=== PATIENT | male | born 1950 ===

== ENCOUNTER 2025-05-25 09:34 | Inpatient (IN) | payer MEDICARE ==
[~2025-05-25] VITALS: Ht 188 cm; Wt 76.4 kg
[2025-05-25] VITALS (15 sets, daily range): BP systolic 114–139; BP diastolic 59–77
[2025-05-25 10:02] LABS: BASOPHILS ABSOLUTE AUTO 0.03 K/mm3 (0.00-0.23); BASOPHILS PERCENT AUTO 0 % (0-2); EOSINOPHILS ABSOLUTE AUTO 0.02 K/mm3 (0.00-0.68); EOSINOPHILS PERCENT AUTO 0 % (0-6); Hematocrit 47.1 % (37.0-53.0); Hemoglobin 16.7 g/dL (13.5-17.5); IMMATURE GRAN ABSOLUTE AUTO 0.04 K/mm3 (0.00-0.10); IMMATURE GRAN PERCENT AUTO 0 % (0-1); LYMPHOCYTES ABSOLUTE AUTO 0.70 K/mm3 (0.84-5.20); LYMPHOCYTES PERCENT AUTO 6 % (21-46); MONOCYTES ABSOLUTE AUTO 0.45 K/mm3 (0.16-1.47); MONOCYTES PERCENT AUTO 4 % (4-13); Mean Corpuscular HGB Conc 35.5 g/dL (31.5-36.5); Mean Corpuscular Volume 94 fL (80-100); NEUTROPHILS ABSOLUTE AUTO 10.04 K/mm3 (1.96-9.15); NEUTROPHILS PERCENT AUTO 89 % (41-73); NRBC ABSOLUTE 0.00 K/mm3 (0.00-0.02); NRBC Auto 0.0 /100 WBC (0.0-0.2); Platelet Count 210 K/mm3 (150-400); RDW Coefficient Variation 13.0 % (11.7-14.2); RDW Standard Deviation 44.7 fL (35.1-46.3)
[2025-05-25 10:20] LABS: Alanine Aminotransfer (ALT/SGP 29.0 U/L (12-78); Albumin, Blood 3.5 g/dL (3.4-5.0); Albumin/Globulin Ratio 1.1 (0.8-1.8); Anion Gap 7.0 mmol/L (3-11); Aspartate Aminotrans (AST/SGOT 142.0 U/L (12-37); Bilirubin, Total 0.8 mg/dL (0.1-1.0); Blood Urea Nitrogen 11.0 mg/dL (8-24); CO2, Blood 26.0 mmol/L (21-32); Calcium, Blood 9.5 mg/dL (8.5-10.1); Chloride, Blood 107.0 mmol/L (98-108); Creatinine, Blood 0.85 mg/dL (0.60-1.20); Globulin, Blood 3.3 g/dL (2.2-4.0); Glucose, Blood 139.0 mg/dL (70-99); Potassium, Blood 4.6 mmol/L (3.5-5.5); Sodium, Blood 135.0 mmol/L (136-145); Total Protein, Blood 6.8 g/dL (6.4-8.2)
[2025-05-25] MEDS ORDERED: Ondansetron HCl 2 MG / ML 2ML Vial IV ONE (10:50)
[2025-05-25] MEDS ORDERED: Morphine Sulfate 4 MG/1 ML Injection IV ONE (11:00)
[2025-05-25] MEDS ORDERED: Metoclopramide HCl 5MG / ML 2ML Vial IV ONE (11:10)
[2025-05-25 11:28] LABS: Prothrombin Time Results 11.5 Sec (9.7-11.5)
[2025-05-25] MEDS ORDERED: Heparin Sodium,Porcine/0.5 NS 500 ML IV SCH (11:50)
[2025-05-25] MEDS ORDERED: Heparin Sodium 5000 Units/ML 1ML MDV IV ONE (11:50)
[2025-05-25] MEDS ORDERED: Nitroglycerin 2 MG/20 ML BTL ONE (12:22)
[2025-05-25] MEDS ORDERED: NS 1,000 ML IV ONE ×2 (12:22→12:23)
[2025-05-25] MEDS ORDERED: NS 250 ML IV ONE (12:22)
[2025-05-25] MEDS ORDERED: NiCARdipine HCL 1,000 MCG/5 ML SYR ONE (12:22)
[2025-05-25] MEDS ORDERED: FentaNYL Citrate 50 MCG/ML 2 ML Injection ONE (12:23)
[2025-05-25] MEDS ORDERED: Midazolam HCl 1MG / ML 2ML Vial ONE (12:23)
[2025-05-25] MEDS ORDERED: NS 1,000 ML IV SCH (13:40)
--- NOTE | 2025-05-25 14:00 | NUR ---
ADMIT PT ARRIVED TO ICU 11 VIA BED S/P STORAGE MANAGER AT 1345. PT IS AWAKE, ALERT, AND ORIENTED. PT ANSWERS QUESTIONS APPROPRIATELY. PT DENIES CHEST PAIN, NAUSEA, OR SOB AT THIS TIME. PT COMPLAINS OF MILD CHEST DISCOMFORT. NITRO GTT INFUSING AT 70 MCG/MIN UPON ARRIVAL AND NS GTT TO GRAVITY. TR BAND IN PLACE TO RIGHT RADIAL SITE WITH ARM BOARD IN PLACE. SITE SOFT, NON TENDER, NO OOZING OR HEMATOMA NOTED AT THIS TIME. VITAL SIGNS STABLE. WILL CONTINUE TO MONITOR.
[2025-05-25 14:05] LABS: LDL/HDL RATIO 2.2
[2025-05-25 14:06] LABS: CHOL/HDL RATIO 3.4; Cholesterol 212 mg/dL (50-200); HDL Cholesterol 62 mg/dL (>39); Low Density Lipoprotein Chol 133 mg/dL (0-110); Triglycerides 83 mg/dL (30-160); Very Low Density Lipoprot Chol 16 mg/dL (6-32)
[2025-05-25] MEDS ORDERED: HYDROmorphone HCl/Pf 1MG SYR IV PRN (15:25)
[2025-05-25] MEDS ORDERED: Dose Adjust by Pharmacy XX STA (16:40)
--- NOTE | 2025-05-25 18:42 | NUR ---
TRANSFER TO [facility] PT LEFT THE ICU VIA [facility] AT 1825 FOR TRANSFER TO [facility] [place]. PT SPOUSE AT BEDSIDE DURING TRANSFER. ALL PT BELONGINGS SENT WITH PT. PT WITH NITRO AND HEPARIN GTT INFUSING. VSS. REPORT CALLED TO SARAY GOMEZ. ALL QUESTIONS ANSWERED.
== END 2025-05-25 18:25 | disposition short-term general hospital (02) | DRG 280 ==
LOC: ER 09:34 → PCU 12:34 → ICUE 12:34
PROVIDERS: Internal Medicine Cardiovascular Disease; Student in an Organized Health Care Education/Training Program; ADMIT Family Medicine
PROC: B2111ZZ Fluoroscopy of Multiple Coronary Arteries using Low Osmolar Contrast (ICD-10-PCS; principal; 2025-05-25)
PROC: 4A023N7 Measurement of Cardiac Sampling and Pressure, Left Heart, Percutaneous Approach (ICD-10-PCS; 2025-05-25)
DX: I21.4 Non-ST elevation (NSTEMI) myocardial infarction (principal); I50.21 Acute systolic (congestive) heart failure; K21.9 Gastro-esophageal reflux disease without esophagitis; I25.10 Atherosclerotic heart disease of native coronary artery without angina pectoris; I49.3 Ventricular premature depolarization; I27.21 Secondary pulmonary arterial hypertension; Z95.5 Presence of coronary angioplasty implant and graft; Z87.19 Personal history of other diseases of the digestive system; Z88.8 Allergy status to other drugs, medicaments and biological substances; Z85.828 Personal history of other malignant neoplasm of skin; Z87.891 Personal history of nicotine dependence
CPT/HCPCS: 71046; 76937; 80053; 80061; 84484; 85025; 85379; 85520; 85610; 85730; 93005; 93010; 93458; 93880; 96365; 96368; 96375; 99152; 99153; 99291-25; A9270; C1769; C1894; C8929; J1644; J2250; J2270; J2405; J2765; J3010; J7030; J7050; Q9957; Q9967

== ENCOUNTER 2025-06-19 16:10 | Inpatient (IN) | payer MEDICARE ==
[~2025-06-19] VITALS: Ht 182.9 cm; Wt 69.8 kg
[2025-06-19 16:42] LABS: BASOPHILS ABSOLUTE AUTO 0.06 K/mm3 (0.00-0.23); BASOPHILS PERCENT AUTO 0 % (0-2); EOSINOPHILS ABSOLUTE AUTO 0.11 K/mm3 (0.00-0.68); EOSINOPHILS PERCENT AUTO 1 % (0-6); Hematocrit 37.0 % (37.0-53.0); Hemoglobin 12.8 g/dL (13.5-17.5); IMMATURE GRAN ABSOLUTE AUTO 0.07 K/mm3 (0.00-0.10); IMMATURE GRAN PERCENT AUTO 0 % (0-1); LYMPHOCYTES ABSOLUTE AUTO 0.83 K/mm3 (0.84-5.20); LYMPHOCYTES PERCENT AUTO 5 % (21-46); MONOCYTES ABSOLUTE AUTO 0.90 K/mm3 (0.16-1.47); MONOCYTES PERCENT AUTO 6 % (4-13); Mean Corpuscular HGB Conc 34.6 g/dL (31.5-36.5); Mean Corpuscular Volume 92 fL (80-100); NEUTROPHILS ABSOLUTE AUTO 14.01 K/mm3 (1.96-9.15); NEUTROPHILS PERCENT AUTO 88 % (41-73); NRBC ABSOLUTE 0.00 K/mm3 (0.00-0.02); NRBC Auto 0.0 /100 WBC (0.0-0.2); Platelet Count 312 K/mm3 (150-400); RDW Coefficient Variation 13.2 % (11.7-14.2); RDW Standard Deviation 44.4 fL (35.1-46.3)
[2025-06-19] MEDS ORDERED: ACET500 PO (17:00)
[2025-06-19] MEDS ORDERED: Aspir 8181 MG PO (17:01)
[2025-06-19] MEDS ORDERED: CARV3.125 PO (17:01)
[2025-06-19] MEDS ORDERED: LOSA25 PO (17:01)
[2025-06-19] MEDS ORDERED: ATOR40TA PO (17:01)
[2025-06-19] MEDS ORDERED: SPIR25 PO (17:02)
[2025-06-19] MEDS ORDERED: TRAM50 PO (17:02)
[2025-06-19 17:08] LABS: Alanine Aminotransfer (ALT/SGP 37.0 U/L (12-78); Albumin, Blood 4.0 g/dL (3.4-5.0); Albumin/Globulin Ratio 1.2 (0.8-1.8); Anion Gap 7.0 mmol/L (3-11); Aspartate Aminotrans (AST/SGOT 24.0 U/L (12-37); Bilirubin, Total 1.4 mg/dL (0.1-1.0); Blood Urea Nitrogen 11.0 mg/dL (8-24); CO2, Blood 23.0 mmol/L (21-32); Calcium, Blood 9.4 mg/dL (8.5-10.1); Chloride, Blood 103.0 mmol/L (98-108); Creatinine, Blood 0.61 mg/dL (0.60-1.20); Globulin, Blood 3.3 g/dL (2.2-4.0); Glucose, Blood 112.0 mg/dL (70-99); Potassium, Blood 4.3 mmol/L (3.5-5.5); Sodium, Blood 129.0 mmol/L (136-145); Total Protein, Blood 7.3 g/dL (6.4-8.2)
[2025-06-19 17:42] LABS: Influenza A, PCR NEGATIVE (NEGATIVE); Influenza B, PCR NEGATIVE (NEGATIVE); Resp Syncytial Virus, PCR NEGATIVE (NEGATIVE); SARS-Cov-2 (COVID-19) PCR, MMC NEGATIVE (NEGATIVE)
[2025-06-19] MEDS ORDERED: CefTRIAXone Sodium 1,000 MG in NS 100 ML IV ONE (18:25)
[2025-06-19] MEDS ORDERED: NS 500 ML IV SCH (19:10)
[2025-06-19] MEDS ORDERED: Vancomycin (Pharmacy Consult) IV SCH (21:52)
[2025-06-19] MEDS ORDERED: FLU VACC TS2025-26(6MOS UP)/PF 45 MCG/0.5 ML SYRINGE IM SCH (21:55)
[2025-06-19] MEDS ORDERED: Piperacillin/Tazobactam Sod 3.375 GM in NS 100 ML IV SCH (22:00)
[2025-06-19 22:39] LABS: Source, Urine Clean Catch
[2025-06-19 22:52] LABS: Bilirubin, Urine Neg (Neg); Glucose Qualitative, Urine Neg (Neg); Ketones, Urine Neg (Neg); Leukocyte Esterase, Urine Neg (Neg); Protein, Urine 1+ (Neg); Specific Gravity, Urine 1.010 (1.003-1.022); Urobilinogen, Urine NORM (Normal)
[2025-06-19 23:15] LABS: Color, Urine Yellow (P-Yellow)
[2025-06-20] VITALS (7 sets, daily range): BP systolic 94–125; BP diastolic 58–67
--- NOTE | 2025-06-20 04:12 | NUR ---
SHIFT SUMMARY: PATIENT ARRIVED TO THE UNIT FROM ER AT 0030 TODAY. PATIENT TRANSFERRED FROM [facility] TO BED WITH STAND BY ASSIST. ASSISTANCE REQUIRED SECONDARY TO HIS SHIVERING DUE TO BEING COLD. PATIENT IS NO LONGER SHIVERING AT THIS TIME. PATIENT IS A&OX4 BUT NISQUALLY. TELE SHOWS SINUS RHYTHM WITH 1ST DEGREE BLOCK BETWEEN 80'S-100'S BPM. VITALS ARE STABLE AND HE IS CURRENTLY ON ROOM AIR WITH >90% SPO2. BETTE STATES "I HAVE SLIGHT DISCOMFORT IN MY NECK DUE TO SLEEPING ON THE COUCH WRONG", WHEN OFFERED PAIN MEDICATION PATIENT REFUSED. PATIENTS STERNOTOMY INCISION - CHEST MIDLINE WITH A SMALLER ONE ABOVE UMBILLICUS - IS OPEN TO AIR AND IS C/D/I. NO REDNESS, EXUDATE, OR PAIN FROM INCISION. PATIENT IS TOLERATING PO INTAKE AND IS VOIDING VIA URINAL AT BEDSIDE. PATIENT IS CURRENTLY LAYING IN BED WITH CALL LIGHT IN REACH. HE IS ABLE TO MAKE HIS NEEDS KNOWN AND CALLS APPROPRIATELY. THE PLAN IS TO HAVE AN ECHO COMPLETED LATER TODAY TO HELP GUIDE PATIENTS PLAN OF CARE.
[2025-06-20 04:40] LABS: BASOPHILS ABSOLUTE AUTO 0.03 K/mm3 (0.00-0.23); BASOPHILS PERCENT AUTO 0 % (0-2); EOSINOPHILS ABSOLUTE AUTO 0.01 K/mm3 (0.00-0.68); EOSINOPHILS PERCENT AUTO 0 % (0-6); Hematocrit 31.9 % (37.0-53.0); Hemoglobin 10.6 g/dL (13.5-17.5); IMMATURE GRAN ABSOLUTE AUTO 0.07 K/mm3 (0.00-0.10); IMMATURE GRAN PERCENT AUTO 1 % (0-1); LYMPHOCYTES ABSOLUTE AUTO 0.77 K/mm3 (0.84-5.20); LYMPHOCYTES PERCENT AUTO 6 % (21-46); MONOCYTES ABSOLUTE AUTO 0.90 K/mm3 (0.16-1.47); MONOCYTES PERCENT AUTO 7 % (4-13); Mean Corpuscular HGB Conc 33.2 g/dL (31.5-36.5); Mean Corpuscular Volume 96 fL (80-100); NEUTROPHILS ABSOLUTE AUTO 10.50 K/mm3 (1.96-9.15); NEUTROPHILS PERCENT AUTO 86 % (41-73); NRBC ABSOLUTE 0.00 K/mm3 (0.00-0.02); NRBC Auto 0.0 /100 WBC (0.0-0.2); Platelet Count 189 K/mm3 (150-400); RDW Coefficient Variation 13.2 % (11.7-14.2); RDW Standard Deviation 46.9 fL (35.1-46.3)
[2025-06-20 05:06] LABS: Alanine Aminotransfer (ALT/SGP 26.0 U/L (12-78); Albumin, Blood 3.1 g/dL (3.4-5.0); Albumin/Globulin Ratio 1.0 (0.8-1.8); Anion Gap 9.0 mmol/L (3-11); Aspartate Aminotrans (AST/SGOT 13.0 U/L (12-37); Bilirubin, Total 1.1 mg/dL (0.1-1.0); Blood Urea Nitrogen 14.0 mg/dL (8-24); CO2, Blood 24.0 mmol/L (21-32); Calcium, Blood 8.8 mg/dL (8.5-10.1); Chloride, Blood 102.0 mmol/L (98-108); Creatinine, Blood 0.73 mg/dL (0.60-1.20); Globulin, Blood 3.0 g/dL (2.2-4.0); Glucose, Blood 130.0 mg/dL (70-99); Potassium, Blood 3.7 mmol/L (3.5-5.5); Sodium, Blood 131.0 mmol/L (136-145); Total Protein, Blood 6.1 g/dL (6.4-8.2)
[2025-06-20] MEDS ORDERED: Piperacillin/Tazobactam Sod 3.375 GM in NS 100 ML IV SCH (06:00)
[2025-06-20] MEDS ORDERED: Lactobacil 2-S.Thermo-Bifido 1 1 Cap PO SCH (09:00)
[2025-06-20] MEDS ORDERED: Enoxaparin 40 MG/0.4 ML SYR SC SCH (09:00)
[2025-06-20 14:46] LABS: Acinetobacter baumannii DNA Not Detected copy/mL (NOT DETECT); Chlamydia pneumonia Not Detected (NOT DETECT); Enterobacter cloacae DNA Not Detected copy/mL (NOT DETECT); Escherichia coli DNA Not Detected copy/mL (NOT DETECT); Haemophilus influenzae DNA Detected Bin 10^4 copy/mL (NOT DETECT); Klebsiella aerogenes DNA Not Detected copy/mL (NOT DETECT); Klebsiella oxytoca DNA Not Detected copy/mL (NOT DETECT); Klebsiella pneumoniae DNA Not Detected copy/mL (NOT DETECT); Moraxella catarrhalis DNA Not Detected copy/mL (NOT DETECT); Proteus sp DNA Not Detected copy/mL (NOT DETECT); Pseudomonas aeruginosa DNA Not Detected copy/mL (NOT DETECT); Serratia marcescens DNA Not Detected copy/mL (NOT DETECT); Staphylococcus aureus DNA Not Detected copy/mL (NOT DETECT); Streptococcus agalactiae DNA Not Detected copy/mL (NOT DETECT); Streptococcus pneumoniae DNA Not Detected copy/mL (NOT DETECT); Streptococcus pyogenes DNA Not Detected copy/mL (NOT DETECT)
[2025-06-20 14:47] LABS: Human Coronavirus RNA Not Detected (NOT DETECT); Human Metapneumovirus RNA Not Detected (NOT DETECT); Influenza virus A RNA Not Detected (NOT DETECT); Influenza virus B RNA Not Detected (NOT DETECT); Respiratory syncytial Vir RNA Not Detected (NOT DETECT); Rhinovirus+Enterovirus RNA Not Detected (NOT DETECT)
[2025-06-20 16:04] LABS: Magnesium, Blood 1.7 mg/dL (1.6-2.4); Phosphorus, Blood 2.7 mg/dL (2.5-4.9); Thyroid Stimulating Hormone 0.655 uIU/mL (0.360-4.800)
[2025-06-20 16:36] LABS: pH Blood Venous 7.43 (7.34-7.37)
--- NOTE | 2025-06-20 18:14 | NUR ---
SHIFT SUMMARY: PT A&OX4. FOLLOWS COMMANDS AND MAKES NEEDS KNOWN TO STAFF. PT WAS ABLE TO GET UP TO THE BATHROOM WITH 1P SBA FOR CORD MANAGEMENT. PT HAS DENIED ANY COMPLAINTS OF CP, PRESSURE, TIGHTNESS OR SOB. BLOOD PRESSURE ON THE LOW SIDE TODAY, OTHERWISE VSS. MAP >65. PT GOT UP TO THE CHAIR FOR MEALS TODAY WITHOUT ANY COMPLAINTS. REMAINED AFEBRILE. NO SIGNIFICANT EVENTS HAPPENED DURING THIS SHIFT. WILL CONTINUE TO CARE FOR PT TILL END OF SHIFT.
[2025-06-21] VITALS: BP 115/79
[2025-06-21] MEDS ORDERED: Piperacillin/Tazobactam Sod 3.375 GM in NS 100 ML IV SCH
[2025-06-21 01:24] LABS: Vancomycin, Trough 18.3 ug/mL (5.0-10.0)
[2025-06-21 03:54] VITALS: BP 114/70
[2025-06-21 05:23] LABS: BASOPHILS ABSOLUTE AUTO 0.05 K/mm3 (0.00-0.23); BASOPHILS PERCENT AUTO 1 % (0-2); EOSINOPHILS ABSOLUTE AUTO 0.18 K/mm3 (0.00-0.68); EOSINOPHILS PERCENT AUTO 2 % (0-6); Hematocrit 31.6 % (37.0-53.0); Hemoglobin 10.8 g/dL (13.5-17.5); IMMATURE GRAN ABSOLUTE AUTO 0.05 K/mm3 (0.00-0.10); IMMATURE GRAN PERCENT AUTO 1 % (0-1); LYMPHOCYTES ABSOLUTE AUTO 0.99 K/mm3 (0.84-5.20); LYMPHOCYTES PERCENT AUTO 9 % (21-46); MONOCYTES ABSOLUTE AUTO 0.91 K/mm3 (0.16-1.47); MONOCYTES PERCENT AUTO 9 % (4-13); Mean Corpuscular HGB Conc 34.2 g/dL (31.5-36.5); Mean Corpuscular Volume 96 fL (80-100); NEUTROPHILS ABSOLUTE AUTO 8.57 K/mm3 (1.96-9.15); NEUTROPHILS PERCENT AUTO 80 % (41-73); NRBC ABSOLUTE 0.00 K/mm3 (0.00-0.02); NRBC Auto 0.0 /100 WBC (0.0-0.2); Platelet Count 163 K/mm3 (150-400); RDW Coefficient Variation 13.2 % (11.7-14.2); RDW Standard Deviation 46.8 fL (35.1-46.3)
--- NOTE | 2025-06-21 06:27 | NUR ---
SHIFT SUMMARY PATIENT ALERT AND ORIENTED X4. HAD NO COMPLAINTS OF PAIN OR SHORTNESS OF BREATH. ON ROOM AIR WITH SPO2 >90%. VITAL SIGNS STABLE. NO ACUTE ISSUES NOTED OVERNIGHT. WILL CONTINUE TO MONITOR. CALL LIGHT WITHIN REACH.
[2025-06-21 07:07] LABS: Alanine Aminotransfer (ALT/SGP 24.0 U/L (12-78); Albumin, Blood 2.8 g/dL (3.4-5.0); Albumin/Globulin Ratio 0.9 (0.8-1.8); Anion Gap 10.0 mmol/L (3-11); Aspartate Aminotrans (AST/SGOT 17.0 U/L (12-37); Bilirubin, Total 1.1 mg/dL (0.1-1.0); Blood Urea Nitrogen 11.0 mg/dL (8-24); CO2, Blood 25.0 mmol/L (21-32); Calcium, Blood 9.0 mg/dL (8.5-10.1); Chloride, Blood 102.0 mmol/L (98-108); Creatinine, Blood 0.8 mg/dL (0.60-1.20); Globulin, Blood 3.2 g/dL (2.2-4.0); Glucose, Blood 93.0 mg/dL (70-99); Potassium, Blood 3.9 mmol/L (3.5-5.5); Sodium, Blood 133.0 mmol/L (136-145); Total Protein, Blood 6.0 g/dL (6.4-8.2)
[2025-06-21 07:44] VITALS: BP 116/72
[2025-06-21] MEDS ORDERED: CefTRIAXone Sodium 1,000 MG in NS 100 ML IV SCH (09:30)
[2025-06-21 10:58] VITALS: BP 110/63
[2025-06-21 14:53] VITALS: BP 125/71
--- NOTE | 2025-06-21 16:18 | NUR ---
SHIFT SUMMARY NO ACUTE CHANGES THIS SHIFT. PATIENT ALERT AND ORIENTED X4. COMMUNICATES NEEDS EFFECTIVELY. IS NOW MEDICAL TELE STATUS. VSS. TELEMETRY SHOWING SINUS W/ 1ST DEGREE 70s-80s. SBP 110s-120s. MAP >65. DENIES CHEST PAIN, PRESSURE. ON ROOM AIR - SATs >90%. DENIES SOB AT REST OR W/ MOBILITY. INDEPENDENT W/ ADLs, SHOWER TODAY. VISITOR AT BEDSIDE THIS AFTERNOON. CALL LIGHT IN REACH.
[2025-06-21 19:29] VITALS: BP 122/76
[2025-06-22 00:23] VITALS: BP 122/68
[2025-06-22 03:20] VITALS: BP 110/71
[2025-06-22 04:29] LABS: BASOPHILS ABSOLUTE AUTO 0.03 K/mm3 (0.00-0.23); BASOPHILS PERCENT AUTO 1 % (0-2); EOSINOPHILS ABSOLUTE AUTO 0.46 K/mm3 (0.00-0.68); EOSINOPHILS PERCENT AUTO 7 % (0-6); Hematocrit 31.4 % (37.0-53.0); Hemoglobin 10.8 g/dL (13.5-17.5); IMMATURE GRAN ABSOLUTE AUTO 0.02 K/mm3 (0.00-0.10); IMMATURE GRAN PERCENT AUTO 0 % (0-1); LYMPHOCYTES ABSOLUTE AUTO 0.91 K/mm3 (0.84-5.20); LYMPHOCYTES PERCENT AUTO 14 % (21-46); MONOCYTES ABSOLUTE AUTO 0.62 K/mm3 (0.16-1.47); MONOCYTES PERCENT AUTO 10 % (4-13); Mean Corpuscular HGB Conc 34.4 g/dL (31.5-36.5); Mean Corpuscular Volume 95 fL (80-100); NEUTROPHILS ABSOLUTE AUTO 4.37 K/mm3 (1.96-9.15); NEUTROPHILS PERCENT AUTO 68 % (41-73); NRBC ABSOLUTE 0.00 K/mm3 (0.00-0.02); NRBC Auto 0.0 /100 WBC (0.0-0.2); Platelet Count 169 K/mm3 (150-400); RDW Coefficient Variation 13.2 % (11.7-14.2); RDW Standard Deviation 45.2 fL (35.1-46.3)
--- NOTE | 2025-06-22 04:30 | NUR ---
SHIFT SUMMARY. SHIFT HAS BEEN UNREMARKABLE. PT AOX4, PLEASANT, COOPERATIVE, ABLE TO MAKE NEEDS KNOWN. SOMEWHAT FORGETFUL AT TIMES. HAS BEEN ABLE TO REST COMFORTABLY THROUGHOUT MOST OF SHIFT. HAS BEEN RUNNING SINUS THROUGHOUT SHIFT. INDEPENDENT IN ROOM, CALLS APPROPRIATELY FOR ASSISTANCE. VITALS STABLE. BED LOCKED IN LOWEST POSITION. CALL LIGHT LEFT WITHIN REACH. CONTINUING TO MONITOR.
[2025-06-22 04:51] LABS: Anion Gap 9.0 mmol/L (3-11); Blood Urea Nitrogen 11.0 mg/dL (8-24); CO2, Blood 25.0 mmol/L (21-32); Calcium, Blood 8.8 mg/dL (8.5-10.1); Chloride, Blood 102.0 mmol/L (98-108); Creatinine, Blood 0.59 mg/dL (0.60-1.20); Glucose, Blood 96.0 mg/dL (70-99); Potassium, Blood 3.8 mmol/L (3.5-5.5); Sodium, Blood 132.0 mmol/L (136-145)
[2025-06-22 07:23] VITALS: BP 118/76
[2025-06-22] MEDS ORDERED: JARDIANCE10 MG PO (09:06)
[2025-06-22] MEDS ORDERED: CEFP200 PO (09:06)
[2025-06-22] MEDS ORDERED: VISBIOME 112.51 EACH PO (09:07)
[2025-06-22] MEDS ORDERED: METO50ER PO (09:07)
[2025-06-22] MEDS ORDERED: Vancomycin (Pharmacy Consult) IV SCH (11:20)
[2025-06-22] MEDS ORDERED: CefTRIAXone Sodium 1,000 MG in NS 100 ML IV ONE (11:25)
[2025-06-22 12:53] LABS: Vancomycin, Random 5.4 ug/mL
[2025-06-22] MEDS ORDERED: NS 250 ML IV PRN (12:55)
[2025-06-22 16:05] VITALS: BP 113/75
--- NOTE | 2025-06-22 18:40 | NUR ---
SHIFT SUMMARY A/O X4, IND IN ROOM. DENIES PAIN/SOB. IV ABX GIVEN. NO ACUTE CHANGES AT THIS TIME.
[2025-06-22 20:27] VITALS: BP 119/75
[2025-06-22 23:58] VITALS: BP 107/63
[2025-06-23 04:30] VITALS: BP 119/70
--- NOTE | 2025-06-23 06:32 | NUR ---
SUPERINTENDENT DRIVERS SUMMARY NO ACUTE EVENTS. PT A/OX4. ABLE TO MAKE NEEDS KNOWN. PT DENIES PAIN OR SOB. PT EXPRESSING VERBAL FRUSTRATIONS OVER "LACK OF COMMUNICATION" PROVIDING LISTENING AND EDUCATION ON CURRENT PLAN OF CARE. ASSISTED PT WITH SHOWER. NO EVENTS ON TELE. CALL LIGHT ACCESSIBLE. CARE ONGOING.
[2025-06-23 06:36] LABS: BASOPHILS ABSOLUTE AUTO 0.06 K/mm3 (0.00-0.23); BASOPHILS PERCENT AUTO 1 % (0-2); EOSINOPHILS ABSOLUTE AUTO 0.72 K/mm3 (0.00-0.68); EOSINOPHILS PERCENT AUTO 12 % (0-6); Hematocrit 33.3 % (37.0-53.0); Hemoglobin 11.3 g/dL (13.5-17.5); IMMATURE GRAN ABSOLUTE AUTO 0.02 K/mm3 (0.00-0.10); IMMATURE GRAN PERCENT AUTO 0 % (0-1); LYMPHOCYTES ABSOLUTE AUTO 1.08 K/mm3 (0.84-5.20); LYMPHOCYTES PERCENT AUTO 18 % (21-46); MONOCYTES ABSOLUTE AUTO 0.60 K/mm3 (0.16-1.47); MONOCYTES PERCENT AUTO 10 % (4-13); Mean Corpuscular HGB Conc 33.9 g/dL (31.5-36.5); Mean Corpuscular Volume 95 fL (80-100); NEUTROPHILS ABSOLUTE AUTO 3.47 K/mm3 (1.96-9.15); NEUTROPHILS PERCENT AUTO 58 % (41-73); NRBC ABSOLUTE 0.00 K/mm3 (0.00-0.02); NRBC Auto 0.0 /100 WBC (0.0-0.2); Platelet Count 185 K/mm3 (150-400); RDW Coefficient Variation 13.1 % (11.7-14.2); RDW Standard Deviation 45.3 fL (35.1-46.3)
[2025-06-23 07:01] LABS: Anion Gap 10.0 mmol/L (3-11); Blood Urea Nitrogen 10.0 mg/dL (8-24); CO2, Blood 24.0 mmol/L (21-32); Calcium, Blood 9.1 mg/dL (8.5-10.1); Chloride, Blood 102.0 mmol/L (98-108); Creatinine, Blood 0.67 mg/dL (0.60-1.20); Glucose, Blood 100.0 mg/dL (70-99); Potassium, Blood 3.8 mmol/L (3.5-5.5); Sodium, Blood 132.0 mmol/L (136-145)
[2025-06-23 07:27] VITALS: BP 115/80
[2025-06-23] MEDS ORDERED: CefTRIAXone Sodium 2,000 MG in NS 100 ML IV SCH (09:00)
[2025-06-23 11:49] VITALS: BP 107/62
[2025-06-23 15:52] VITALS: BP 116/72
--- NOTE | 2025-06-23 19:08 | NUR ---
NOTE PT REPORTS EZEMA ON ARMS, THIS RN NOTICED HOME LOTIONS AT BEDSIDE, NOTIFIED DR. TRAMMELL, DR. TRAMMELL REPORTED "PT CAN DECIDE IF PT WANTS TO USE HOME LOTIONS AND HAVE PHARMACY VERIFY, OR WE CAN ORDER CREAM FOR EZEMA." THIS RN CALLED PHARMACY. PHARMACY REQUESTED TO SEE LOTIONS TO SEE IF WE HAVE FORMULARY. THIS RN SENT TO PHARMACY WITH PT LABEL. PHARMACY REPORTED, "WE DONT HAVE FORMULARY FOR LOTIONS BUT NEED ORDER." LOTIONS IN PT DRAWER WITH NAME ATTACHED. AWAITING ORDER FOR LOTIONS. THIS RN WILL NOTIFY NIGHT RN.
--- NOTE | 2025-06-23 19:28 | NUR ---
SHIFT SUMMARY PT A&OX4. PT ADMITTED DUE TO SIRS. PT INDEPENDENT IN ROOM. PT REPORTS EZEMA ON ARMS. PT REPORTS NO PAIN/CHEST PAIN/SOB. PT GETTING IV VANCO AND CEFTRIAZONE. PT ON TELE, NO TELE REPORTS NOTED. PT HAS SCARS ON STERNUM DUE TO PROCEDURE THAT WAS COMPLETED A MONTH AGO, SCARS ARE O/T/A, C/D/I. INCENTIVE SPIROMETER ORDERED. INCENTIVE SPIROMETER AT BEDSIDE. AWAITING CULTURE RESULTS TOMORROW. PT IN BED, BED IN LOWEST POSITION, CALL LIGHT IN REACH. VSS.
[2025-06-23 20:06] VITALS: BP 123/75
[2025-06-24] VITALS (7 sets, daily range): BP systolic 111–132; BP diastolic 73–81
[2025-06-24 01:06] LABS: BASOPHILS ABSOLUTE AUTO 0.06 K/mm3 (0.00-0.23); BASOPHILS PERCENT AUTO 1 % (0-2); EOSINOPHILS ABSOLUTE AUTO 0.86 K/mm3 (0.00-0.68); EOSINOPHILS PERCENT AUTO 14 % (0-6); Hematocrit 35.2 % (37.0-53.0); Hemoglobin 12.0 g/dL (13.5-17.5); IMMATURE GRAN ABSOLUTE AUTO 0.02 K/mm3 (0.00-0.10); IMMATURE GRAN PERCENT AUTO 0 % (0-1); LYMPHOCYTES ABSOLUTE AUTO 1.23 K/mm3 (0.84-5.20); LYMPHOCYTES PERCENT AUTO 20 % (21-46); MONOCYTES ABSOLUTE AUTO 0.60 K/mm3 (0.16-1.47); MONOCYTES PERCENT AUTO 10 % (4-13); Mean Corpuscular HGB Conc 34.1 g/dL (31.5-36.5); Mean Corpuscular Volume 95 fL (80-100); NEUTROPHILS ABSOLUTE AUTO 3.49 K/mm3 (1.96-9.15); NEUTROPHILS PERCENT AUTO 56 % (41-73); NRBC ABSOLUTE 0.00 K/mm3 (0.00-0.02); NRBC Auto 0.0 /100 WBC (0.0-0.2); Platelet Count 198 K/mm3 (150-400); RDW Coefficient Variation 13.0 % (11.7-14.2); RDW Standard Deviation 45.0 fL (35.1-46.3)
[2025-06-24 01:28] LABS: Anion Gap 9 mmol/L (3-11); Blood Urea Nitrogen 12 mg/dL (8-24); CO2, Blood 26 mmol/L (21-32); Calcium, Blood 9.2 mg/dL (8.5-10.1); Chloride, Blood 102 mmol/L (98-108); Creatinine, Blood 0.80 mg/dL (0.60-1.20); Glucose, Blood 103 mg/dL (70-99); Potassium, Blood 4.2 mmol/L (3.5-5.5); Sodium, Blood 133 mmol/L (136-145); Vancomycin, Trough 14.7 ug/mL (5.0-10.0)
--- NOTE | 2025-06-24 04:32 | NUR ---
SHIFT SUMMARY PATIENT IS ALERT AND ORIENTED. PATIENT HAS HAD NO ACUTE EVENTS THIS SHIFT. VITAL SIGNS REVIEWED. ABX INFUSED ORDERED. PATIENT HAS HAD NO COMPLAINTS OF PAIN, NAUSEA, SOB OR VOMITTING THIS SHIFT. BED IS LOCKED AND LOWEST POSITION. CALL LIGHT IN PLACE.
[2025-06-24] MEDS ORDERED: [UNRECOGNIZED DRUG - OTHER] TOP PRN (11:40)
--- NOTE | 2025-06-24 19:42 | NUR ---
SHIFT SUMMARY PT A&OX4. PT ADMITTED DUE TO SIRS. PT INDEPENDENT IN ROOM. PT EZEMA LOTIONS PT REPORTS USES AT HOME NOW ORDERED AND IN LOCKED DRAWER FOR PRN USE. PT REPORTS NO PAIN/CHEST PAIN/SOB. PT GETTING IV ANTIBIOTIC. PT ON TELE, NO TELE REPORTS NOTED. PT HAS SCARS ON STERNUM DUE TO PROCEDURE THAT WAS COMPLETED A MONTH AGO, SCARS ARE O/T/A C/D/I. INCENTIVE SPIROMETER AT BEDSIDE. DR. TRAMMELL REPORTED LIKELY DISCHARGE HOME TOMORROW ON ORAL ANTIBIOTIC. PT IN BED, BED IN LOWEST POSITION, CALL LIGHT IN REACH. VSS.
[2025-06-25 04:01] VITALS: BP 121/82
--- NOTE | 2025-06-25 06:18 | NUR ---
SHIFT SUMMARY; PT A/O X4, PLEASANT, AND INDEPENDENT WITH HIS CARE. PT MEDICATED PER EMAR. R AC IV LEAKS UPON FLUSHING. IV NOT REPLACED PT IS PLANNED TO BE DISCHARGED IN THE AM. PT ON TELE AT 76 BPM W/ PROLONGATION OF QT INTERVAL. VSS. CALL LIGHT WITHIN REACH AND BED IN LOW POSITION.
[2025-06-25 08:21] VITALS: BP 119/69
[2025-06-25] MEDS ORDERED: LINE600 PO (09:07)
--- NOTE | 2025-06-25 11:36 | NUR ---
DISCHARGE SUMMARY: PATIENT DISCHARGED IN [facility]. PATIENT A+O X4 AND ABLE TO MAKE NEEDS KNOWN DURING THIS SHIFT. PATIENT RE-EDUCATED ON MEDICATIONS AND WHAT MEDICATIONS TO RN MEDICAL SURGICAL. PATIENT VERBALIZED UNDERSTANDING. PATIENT BELONGINGS GIVEN BACK TO PATIENT. IV REMOVED.
== END 2025-06-25 11:16 | disposition home or self-care (01) | DRG 871 ==
LOC: ER 16:10 → PCU 21:54 → MEDS 21:54 → PCU 06-20 00:27 → MEDS 06-22 06:45 → ENPENDDIS 06-22 10:33 → MEDS 06-25 11:16
PROVIDERS: Family Medicine; Student in an Organized Health Care Education/Training Program; ADMIT Internal Medicine
DX: A41.01 Sepsis due to Methicillin susceptible Staphylococcus aureus (principal); G92.8 Other toxic encephalopathy; J14 Pneumonia due to Hemophilus influenzae; E87.1 Hypo-osmolality and hyponatremia; I50.22 Chronic systolic (congestive) heart failure; I11.0 Hypertensive heart disease with heart failure; I27.21 Secondary pulmonary arterial hypertension; R65.20 Severe sepsis without septic shock; I25.10 Atherosclerotic heart disease of native coronary artery without angina pectoris; Z87.19 Personal history of other diseases of the digestive system; Z95.5 Presence of coronary angioplasty implant and graft; Z88.8 Allergy status to other drugs, medicaments and biological substances; Z79.82 Long term (current) use of aspirin; Z79.899 Other long term (current) drug therapy; Z95.1 Presence of aortocoronary bypass graft; Z98.890 Other specified postprocedural states
CPT/HCPCS: 0528U; 36415; 51798; 71046; 80048; 80053; 80202; 82533; 82803; 83605; 83690; 83735; 83880; 84100; 84439; 84443; 84481; 84484; 85025; 87040; 87070; 87077; 87147; 87186; 87205; 87637; 96365; 99285-25; A9270; C8929; J0696; J1650; J2543; J3373; J7030; J7040; J7050; Q9957